=== PATIENT | female | born 1965 | race Hispanic/Latino ===

== ENCOUNTER → 2022-01-26 | Outpatient (CLI) | payer OTHER, MEDICARE ==
[~2022-01-26] MED LIST: AEC81 PO; ALPR0.255 PO; AMLO-257 PO; CELE100C97 PO; ISOS30TA92 PO; METO25TA6 PO; NITR0.4T50 SL; PENT400T72 PO; SERT-439 PO
== END | disposition home or self-care (01) ==
LOC: SHCH 09:35
PROVIDERS: ATTEND Internal Medicine Cardiovascular Disease
DX: I87.2 Venous insufficiency (chronic) (peripheral) (principal); I73.9 Peripheral vascular disease, unspecified
CPT/HCPCS: 93925; 93970

== ENCOUNTER → 2022-05-29 | Outpatient (CLI) | payer OTHER, MEDICARE ==
[2022-05-29 12:13] LABS: BASOPHILS % (AUTO) 0.8 % (0.0-5.0); EOSINOPHILS % (AUTO) 1.3 % (0.0-8.0); MEAN CORPUSCULAR HEMOGLOBIN 24.3 pg (27.0-33.0); MONOCYTES % (AUTO) 8.4 % (3.0-13.0); NEUTROPHILS % (AUTO) 51.3 % (40.0-77.0); PLATELET COUNT (AUTO) 306 K/uL (130-400); RED CELL DISTRIBUTION WIDTH 17.1 % (11.0-15.5); WHITE BLOOD COUNT (AUTO) 6.1 K/uL (4.8-10.8)
[2022-05-29 12:22] LABS: INR 0.93 (0.85-1.15)
[2022-05-29 12:23] LABS: CREATININE 0.6 mg/dL (0.5-1.5); PARTIAL THROMBOPLASTIN TIME 27.8 SEC (26.3-35.5); POTASSIUM 3.9 mmol/L (3.5-5.1)
== END | disposition home or self-care (01) ==
LOC: LAB 09:04
PROVIDERS: ATTEND Internal Medicine Cardiovascular Disease
DX: I87.2 Venous insufficiency (chronic) (peripheral) (principal); I87.1 Compression of vein
CPT/HCPCS: 36415; 80048; 85025; 85610; 85730

== ENCOUNTER → 2022-07-23 | Outpatient (CLI) | payer MEDICARE ==
[2022-07-23 11:58] LABS: BASOPHILS % (AUTO) 0.7 % (0.0-5.0); EOSINOPHILS % (AUTO) 1.8 % (0.0-8.0); HEMATOCRIT 36.3 % (36-48); LYMPHOCYTES % (AUTO) 35.2 % (21.0-51.0); MEAN CORPUSCULAR HEMOGLOBIN 24.5 pg (27.0-33.0); MEAN CORPUSCULAR VOLUME 81.6 fL (79-99); PLATELET COUNT (AUTO) 354 K/uL (130-400); RED BLOOD CELL COUNT(AUTO) 4.45 MIL/uL (4.00-5.50); RED CELL DISTRIBUTION WIDTH 17.8 % (11.0-15.5); WHITE BLOOD COUNT (AUTO) 7.2 K/uL (4.8-10.8)
[2022-07-23 12:10] LABS: CREATININE 0.7 mg/dL (0.5-1.5); INR 0.93 (0.85-1.15); POTASSIUM 4.1 mmol/L (3.5-5.1); PROTHROMBIN TIME 9.8 SEC (9.6-11.6)
[2022-07-23 12:12] LABS: PARTIAL THROMBOPLASTIN TIME 24.7 SEC (26.3-35.5)
== END | disposition home or self-care (01) ==
LOC: LAB 09:04
PROVIDERS: ATTEND Physician Assistant
DX: I87.1 Compression of vein (principal); I87.2 Venous insufficiency (chronic) (peripheral); I10 Essential (primary) hypertension; E03.9 Hypothyroidism, unspecified; I27.20 Pulmonary hypertension, unspecified; F32.9 Major depressive disorder, single episode, unspecified; M79.604 Pain in right leg; R25.2 Cramp and spasm; E66.01 Morbid (severe) obesity due to excess calories; Z68.42 Body mass index [BMI] 45.0-49.9, adult; Z79.82 Long term (current) use of aspirin; Z79.02 Long term (current) use of antithrombotics/antiplatelets; Z79.899 Other long term (current) drug therapy
CPT/HCPCS: 36415; 80048; 85025; 85610; 85730